=== PATIENT | male | born 1960 | race Caucasian/White ===

== ENCOUNTER 2020-09-05 10:04 | Outpatient (REF) | payer OTHER, SELFPAY | END 2020-09-05 10:05 | disposition home or self-care (01) | LOC: HO.LAB 10:04 | PROVIDERS: Visit Provider Internal Medicine | DX: Z20.828 Contact with and (suspected) exposure to other viral communicable diseases (principal) | CPT/HCPCS: C9803; U0003 ==

== ENCOUNTER 2021-06-12 11:48 | Outpatient (REF) | payer OTHER, SELFPAY | END 2021-06-12 11:49 | disposition home or self-care (01) | LOC: HO.LAB 11:48 | PROVIDERS: Visit Provider Internal Medicine | DX: Z20.822 Contact with and (suspected) exposure to COVID-19 (principal) | CPT/HCPCS: C9803; U0003; U0005 ==

== ENCOUNTER 2022-01-17 12:37 | Outpatient (REF) | payer OTHER, SELFPAY ==
[2022-01-17 13:41] LABS: Erythrocyte Sedimentation Rate 2 MM/HR (0-15)
[2022-01-19 01:32] LABS: Lyme Abs Screen <0.90 index
== END 2022-01-17 12:38 | disposition home or self-care (01) ==
LOC: HO.LAB 12:37
PROVIDERS: PCP Internal Medicine; Visit Provider Psychiatry & Neurology Neurology
DX: M25.50 Pain in unspecified joint (principal)
CPT/HCPCS: 36415; 85652; 86617; 86618

== ENCOUNTER 2022-02-28 09:52 | Outpatient (REF) | payer OTHER, SELFPAY ==
[2022-02-28 10:09] LABS: MANUAL DIFF FLAG NO
[2022-02-28 10:33] LABS: Basophils Absolute Auto 0.1 X10*3/uL (0.0-0.2); Basophils Percent Auto 0.6 % (0-2); Eosinophils Absolute Auto 0.1 X10*3/uL (0.0-0.4); Eosinophils Percent Auto 1.1 % (0-4); Hematocrit 47.8 % (42.0-52.0); Imm Gran Abs Auto 0.01 X10*3/uL (0.00-0.03); Imm Gran Pct Auto 0.1 % (0.0-0.4); Lymphocytes Absolute Auto 1.9 X10*3/uL (1.2-4.9); Lymphocytes Percent Auto 24.4 % (20-40); Mean Corpuscular HGB Conc 33.5 g/dl (31.0-36.0); Mean Corpuscular Hemoglobin 29.6 pg (27.0-33.0); Mean Corpuscular Volume 88.5 fL (80.0-98.0); Mean Platelet Volume 13.2 fL (9.4-12.4); Monocytes Absolute Auto 0.6 X10*3/uL (0.1-1.2); Neutrophils Absolute Auto 5.2 x10*3/uL (2.0-8.3); Neutrophils Percent Auto 65.8 % (45-73); Platelet Count 158 X10*3/uL (160-400); Red Cell Distribution Width 14.2 % (11.0-16.0); White Blood Count 7.9 X10*3/uL (4.8-10.8)
[2022-02-28 10:52] LABS: Appearance Urine HAZY; Color Urine YELLOW; Glucose Urine UA NEG (NEG); Leukocyte Esterase Urine NEG (NEG); Nitrite Urine NEG (NEG); Specific Gravity - Urine >= 1.030 (1.005-1.025); Urine Blood NEG (NEG); Urine Ketones 5 MG/DL (NEG); Urine Protein NEG (NEG-TRACE)
[2022-02-28 10:53] LABS: Cholesterol 220 mg/dL; Glucose Random 87 mg/dL (60-115); HDL Cholesterol 85 mg/dL; LDL Cholesterol Calculated 126 mg/dl; Magnesium 1.8 mg/dL (1.6-2.6); Triglycerides 49 mg/dL
[2022-02-28 11:13] LABS: Prostate Specific Antigen 0.96 ng/mL (<0.05-4.0)
[2022-02-28 11:20] LABS: Vitamin B12 380 pg/mL (200-900)
[2022-03-02 03:46] LABS: LDL Cholesterol Direct 112 mg/dL (<100)
== END 2022-02-28 09:53 | disposition home or self-care (01) ==
LOC: HO.LAB 09:52
PROVIDERS: PCP Internal Medicine; Visit Provider Internal Medicine
DX: Z12.5 Encounter for screening for malignant neoplasm of prostate (principal); K21.9 Gastro-esophageal reflux disease without esophagitis; M54.50 Low back pain, unspecified
CPT/HCPCS: 36415; 80061; 81003; 82607; 82947; 83721; 83735; 84153; 85025

== ENCOUNTER 2022-09-10 15:54 | Outpatient (REF) | payer OTHER, SELFPAY ==
--- NOTE | ~2022-09-10 | XR_ITS ---
EXAMINATION: XR WRIST, RIGHT CLINICAL INFORMATION: M25.532 - Pain in left wrist COMPARISON: None TECHNIQUE: Right wrist is imaged in 4 views. FINDINGS: There is no acute fracture or dislocation or destructive process. There is mild dorsal bowing distal ulnar. The pronator quadratus fat pad appears normal. The ulnar styloid is ununited and corticated. There are 2 punctate corticated ossicles medial wrist and a corticated ossicle adjacent to palmar side radial styloid. There is mild widening between the lunate and scaphoid which may suggest degenerative change or tear of scapholunate ligament. There is no focal joint narrowing or erosive change or definite chondrocalcinosis. XR/XR wrist RT min 3V IMPRESSION: -Mild widening between lunate and scaphoid which may suggest degenerative change or tear of the scapholunate ligament. -Ununited corticated ulnar styloid. Smaller ossicles medial and lateral sides.
== END 2022-09-10 15:55 | disposition home or self-care (01) ==
LOC: HO.HOSX 15:54
PROVIDERS: Visit Provider Orthopaedic Surgery
DX: M25.531 Pain in right wrist (principal)
CPT/HCPCS: 73110

== ENCOUNTER 2022-09-25 08:18 | Day surgery (SDC) | payer OTHER, SELFPAY ==
--- NOTE | 2022-09-24 10:11 | HO.ANESPROP2 ---
Documented by User: Kaitlin Collier NP 09/24/22 10:11 HPI - Anesthesia Eval Consult details Narrative: 62yo M for Upper Endoscopy and Colonoscopy [facility] Active Problems Active Problems: All Active Problems (Updated 09/11/22 @ 11:10 by Phu Cristobal) Carpal tunnel syndrome of right wrist (Acute) Scapholunate advanced collapse of right wrist (Acute) Past Medical History Medical History (Updated 09/11/22 @ 11:10 by Phu Cristobal) Acid reflux Hx of nephrolithotomy with removal of calculi Parkinson disease Surgical History Surgical History (Updated 09/24/22 @ 07:48 by Sadie Cisneros RN) H/O lithotripsy Social History Social History (Updated 09/11/22 @ 10:23 by ALBERTO Michael) Patient Tobacco Use Status: Never used Tobacco Second Hand Smoke Exposure: No Use of substances other than those prescribed or required for medical reasons: No Are you DNR?: No Advance Directives: No Advance Directives Information Provided: Yes Advance Directives on File: No Current occupational status: retired Current occupation: left hand Meds Allergies Allergy/AdvReac Type Severity Reaction Status Date / Time No Known Allergies Allergy Unverified 09/11/22 10:20 Home Medications Medication Instructions Recorded Confirmed Last Taken Type carbidopa 25 mg-levodopa 100 mg 2 tab PO QID 09/11/22 09/25/22 09/25/22 History tablet clonazepam 0.5 mg tablet 0.25 mg PO BEDTIME 09/11/22 09/25/22 Unknown History omeprazole 20 mg capsule,delayed 20 mg PO DAILY 09/11/22 09/25/22 Unknown History release pramipexole 1.5 mg tablet,extended 3 mg PO BID 09/11/22 09/25/22 09/25/22 History release 24 hr sildenafil 100 mg tablet 100 mg PO DAILY 09/11/22 09/25/22 Unknown History Exam Exam Date and Time: September 24, 2022 1011 Assessment and Plan Assessment Anesthesia Assessment: Chart Reviewed Documented by User: Ptio Aguilar MD 09/25/22 17:14 [facility] Past Medical History Medical History (Updated 09/11/22 @ 11:10 by Phu Cristboal) Acid reflux Hx of nephrolithotomy with removal of calculi Parkinson disease Functional capacity: independent ambulation Family History Family history of problems with anesthesia: No Surgical History Surgical History (Updated 09/24/22 @ 07:48 by Sadie Cisneros RN) H/O lithotripsy History of Problems with Anesthesia: No Social History Social History (Updated 09/11/22 @ 10:23 by ALBERTO Michael) Patient Tobacco Use Status: Never used Tobacco Second Hand Smoke Exposure: No Use of substances other than those prescribed or required for medical reasons: No Are you DNR?: No Advance Directives: No Advance Directives Information Provided: Yes Advance Directives on File: No Current occupational status: retired Current occupation: left hand Meds Allergies Allergy/AdvReac Type Severity Reaction Status Date / Time No Known Allergies Allergy Unverified 09/11/22 10:20 Home Medications Medication Instructions Recorded Confirmed Last Taken Type carbidopa 25 mg-levodopa 100 mg 2 tab PO QID 09/11/22 09/25/22 09/25/22 History tablet clonazepam 0.5 mg tablet 0.25 mg PO BEDTIME 09/11/22 09/25/22 Unknown History omeprazole 20 mg capsule,delayed 20 mg PO DAILY 09/11/22 09/25/22 Unknown History release pramipexole 1.5 mg tablet,extended 3 mg PO BID 09/11/22 09/25/22 09/25/22 History release 24 hr sildenafil 100 mg tablet 100 mg PO DAILY 09/11/22 09/25/22 Unknown History Exam Airway Mallampati Class: III TM Dist: >3cm Neck ROM: Full Loose/Missing/Broken Teeth: Yes (Chipped teeth multiple ) Heart: S1,S2 Lungs: b/l breath sounds Assessment and Plan Assessment Anesthesia Assessment: Anesthesia Plan Discussed Final Anesthetic Review Family History of Problems with Anesthesia: No History of Problems with Anesthesia: No NPO: Yes ASA Class: III Final Preanesthetic Review: Meds/Allgs Chart Reviewed, Consent Obtained/Reviewed and Anes Risks/Benef Reviewed Patient Risk: Intermediate Procedure Risk: Intermediate Anesthetic Plan Anesthetic Plan: MAC: Disposition: Standard PACU
[2022-09-25 08:25] VITALS: BMI 25.0
[2022-09-25 08:38] VITALS: BP 131/84; PULSE 88; RESP 16; TEMP 36.4; O2SAT 97
[2022-09-25] MEDS: Lactated Ringers 1,000 ML 100 ML IVCONT (08:43)
--- NOTE | 2022-09-25 09:22 | MHC.SHP ---
Pre-Procedural Eval Section A Date of Service: 09/25/22 Section B Chief Complaint: reflux disease,screening Details of Present Illness: see H*P no changes Relevant Family History (Specify if Yes): No Relevant Social History: None Present Medications: see Short Stay Collaborative assessment Medical History: No relevant PMH History of Previous Operations: No relevant previous surgery Allergies: Allergies Allergy/AdvReac Type Severity Reaction Status Date / Time No Known Allergies Allergy Unverified 09/11/22 10:20 Review of Systems Sugical H&P ROS: Negative: Constitution, Cardiovascular, Respiratory, Neurological, Psychiatric, Hem-Onc, Allergic/Immunologic, Gastrointestinal, Genitourinary, Musculoskeletal, Integumentary, Endocrine and Eyes/Ears/Nose/Throat Exam Surgical H&P Exam: Normal: HEENT, Normal: Heart, Normal: Lungs, Normal: Extremities, Normal: Abdomen, Normal: Skin and Normal: Neurological Plan Diagnosis/Plan: Unchanged I have reviewed the history and physical and performed a pertinent physical examination on my patient. No changes have occurred unless specified.
[2022-09-25 10:12] VITALS: BP 112/77; PULSE 67; RESP 16; TEMP 36.4; O2SAT 96
--- NOTE | 2022-09-25 10:12 | P.BOP_ITS ---
Brief Operative Note Date of Service: 09/25/22 Pre-op diagnosis: gerd screening Post-op diagnosis: same Procedure: egd Surgeon: Tommy Tony Anesthesia: MAC Was an Business And Financial Counsel used for this Procedure?: No Estimated blood loss (mL): 2 Pathology: other Condition: stable Disposition: PACU
[2022-09-25 10:27] VITALS: BP 118/78; PULSE 63; RESP 16; TEMP 36.2; O2SAT 95
--- NOTE | 2022-09-25 21:18 | OP_ITS ---
SURGEON: Tommy Tony MD INDICATIONS: 1. Gastroesophageal reflux disease. 2. Colon cancer screening. PREOPERATIVE DIAGNOSIS: POSTOPERATIVE DIAGNOSIS: PROCEDURE PERFORMED: Upper endoscopy with biopsy and snare polypectomy. Colonoscopy to the terminal ileum. ESTIMATED BLOOD LOSS: COMPLICATIONS: ANESTHESIA: Monitored anesthesia care. ASSISTANTS: SPECIMENS: DESCRIPTION OF PROCEDURE: The procedure was performed on 09/25/2022. A history and physical performed. The risks and benefits of the procedure were explained to the patient. Informed consent was obtained. The patient was placed in the left lateral decubitus position. The Olympus video gastroscope was introduced into the esophagus, stomach, and duodenum. Examination was performed. The scope was removed. He was repositioned for colonoscopy. A digital rectal exam was performed and was found to be normal. The Olympus pediatric video colonoscope was introduced into the rectum and advanced to the cecum without difficulty. The cecum was identified by transillumination, palpation, and identification of ileocecal valve. Examination was performed and the scope was removed. He tolerated both procedures well and was taken to recovery room in stable condition. FINDINGS: Upper endoscopy: Esophagus: The esophagus showed mild distal esophagitis with some linear erosions extending approximately 1-2 cm above the EG junction. This was biopsied. Stomach: Just below the EG junction, there was a 6 mm polyp, which was biopsied and removed with a snare. There were 2 polyps in the antrum that were sessile, measuring less than 10 mm. These were biopsied. Antral biopsies were also obtained. There was no gastritis. Duodenum: The bulb and second portion were normal. Colonoscopy: The terminal ileum was normal. The visualized colonic mucosa was normal. The quality of the prep was good. No polyps were identified. Retroflexed examination showed small internal hemorrhoids. IMPRESSION: 1. Gastric polyps. 2. Gastroesophageal reflux disease with esophagitis. 3. Normal colonoscopy. RECOMMENDATION: 1. Follow up with biopsy results. 2. Repeat colonoscopy is recommended in 10 years for average risk individuals. MD EMIR Collado/JOSÉ MIGUEL / [id number]
== END 2022-09-25 11:12 | disposition home or self-care (01) ==
PROVIDERS: PCP Internal Medicine; Visit Provider Internal Medicine Gastroenterology
PROC: (CPT 43251; principal; 2022-09-25 08:50)
DX: Z12.11 Encounter for screening for malignant neoplasm of colon (principal); K21.00 Gastro-esophageal reflux disease with esophagitis, without bleeding; K31.7 Polyp of stomach and duodenum; G20 Parkinson's disease; Z79.899 Other long term (current) drug therapy
CPT/HCPCS: 43251; 43239; 45378; 88305; 88313; 88341; 88342

== ENCOUNTER 2022-10-15 10:17 | Day surgery (SDC) | payer OTHER, SELFPAY ==
[2022-10-15 10:22] VITALS: BMI 25.0
--- NOTE | 2022-10-15 11:31 | MHC.SHP ---
Pre-Procedural Eval Section A Date of Service: 10/15/22 The patient is an INPATIENT: No Changes since office visit: No Cold of Flu in the past 2 weeks, No New Medical Problems, No Changes in Medication and No Patient answered all questions The History & Physical has been completed within 30 days and I have reviewed it.: Yes Section B Chief Complaint: Carpal tunnel syndrome, right upper limb Allergies: Allergies Allergy/AdvReac Type Severity Reaction Status Date / Time No Known Allergies Allergy Verified 10/15/22 10:23 Plan I have reviewed the history and physical and performed a pertinent physical examination on my patient. No changes have occurred unless specified. Time Spent With Patient Time: Total time managing care of this patient today ____ minutes.
--- NOTE | 2022-10-15 11:31 | W.PM.OPN ---
Operative Note Operative Note Date of Service: 10/15/22 Narrative: Preop diagnosis: 1. Right Carpal tunnel syndrome Postop diagnosis: same Procedure: 1. Right Carpal tunnel release Surgeon: Smitha Abad MD Anesthesia: local block using 1% lidocaine with epinephrine Findings: Thickened transverse carpal ligament. EBL: Less than 5 mL Specimens: None Complications: None Disposition: Brought to recovery room in stable condition Plan: Follow-up for 10-14 days for wound check and suture removal Indications: The patient is 62 years old, with right carpal tunnel syndrome that has been unresponsive to nonoperative management. The risks and benefits of operative treatment including but not limited to risk of damage to blood vessels, nerves, tendons, infection, persistent pain, persistent symptoms, or possible need for additional surgery were discussed with the patient and the patient wishes to proceed with surgery. Procedure: Once consent was obtained a local block was performed using a combination of 1% lidocaine with epinephrine. The patient was then brought back to the operating suite and placed on the operative table in supine position. A tourniquet was applied to the proximal aspect of the right upper extremity and the limb was prepped and draped in a standard surgical fashion. Once assured that we had a good block, a 2.0 cm longitudinal incision was made centered over the carpal tunnel. The incision was made through the skin to the subcutaneous tissues using a #15 blade. Dissection was made down to the level of the transverse carpal ligament with care being taken to protect the palmar cutaneous nerve. Once the transverse carpal ligament was clearly visualized, a longitudinal incision was made in the transverse carpal ligament 1st using a #15 blade, then using tenotomy scissors under direct visualization. Care was taken to look for and protect the motor branch of the median nerve when seen in this area. Once satisfied with our carpal tunnel release the wound was copiously irrigated with normal saline and hemostasis was obtained with a brief period of local pressure. The skin edges were reapproximated with some 5.0 nylon suture material and a sterile dressing was applied. The patient appears to have tolerated the procedure well and with no complications. All digits were well vascularized at the conclusion of the case.
[2022-10-15 12:32] VITALS: BP 120/84; PULSE 74; RESP 16; O2SAT 94
== END 2022-10-15 12:43 | disposition home or self-care (01) ==
PROVIDERS: PCP Internal Medicine; Visit Provider Orthopaedic Surgery
PROC: (CPT 64721; principal; 2022-10-15 12:10)
DX: G56.01 Carpal tunnel syndrome, right upper limb (principal); R20.0 Anesthesia of skin; R20.2 Paresthesia of skin; M19.131 Post-traumatic osteoarthritis, right wrist; G20 Parkinson's disease; K21.9 Gastro-esophageal reflux disease without esophagitis; Z79.899 Other long term (current) drug therapy
CPT/HCPCS: 64721; J0171

== ENCOUNTER → 2022-10-25 09:48 | Outpatient (BNVA) | payer OTHER, SELFPAY | PROVIDERS: PCP Internal Medicine; Visit Provider Physician Assistant | DX: G56.01 Carpal tunnel syndrome, right upper limb (principal) ==

== ENCOUNTER 2023-06-11 09:37 | Outpatient (REF) | payer OTHER, SELFPAY | END 2023-06-11 09:38 | disposition home or self-care (01) | LOC: HO.LAB 09:37 | PROVIDERS: PCP Internal Medicine; Visit Provider Internal Medicine | DX: Z13.89 Encounter for screening for other disorder (principal) ==

== ENCOUNTER 2023-06-14 09:30 | Outpatient (REF) | payer OTHER, SELFPAY ==
[2023-06-14 10:39] LABS: Cholesterol 188 mg/dL; HDL Cholesterol 81 mg/dL; LDL Cholesterol Calculated 97 mg/dl; Triglycerides 53 mg/dL
[2023-06-14 10:54] LABS: Prostate Specific Antigen 0.93 ng/mL (<0.05-4.0)
[2023-06-15 12:19] LABS: LDL Cholesterol Direct 91 mg/dL (<100)
[2023-06-19 14:09] LABS: Methylmalonic Acid 171 nmol/L (87-318)
== END 2023-06-14 09:31 | disposition home or self-care (01) ==
LOC: HO.LAB 09:30
PROVIDERS: PCP Internal Medicine; Visit Provider Internal Medicine
DX: G20 Parkinson's disease (principal); K21.9 Gastro-esophageal reflux disease without esophagitis; Z12.5 Encounter for screening for malignant neoplasm of prostate; Z83.438 Family history of other disorder of lipoprotein metabolism and other lipidemia
CPT/HCPCS: 36415; 80061; 83721; 83921; 84153

== ENCOUNTER 2023-06-25 09:17 | Outpatient (REF) | payer OTHER, SELFPAY ==
--- NOTE | ~2023-06-25 | FL_ITS ---
EXAMINATION: XR FLUOROSCOPY WITH IMAGES CLINICAL INFORMATION: Posttraumatic osteoarthritis, right wrist. COMPARISON: Previous x-ray August 2022. TECHNIQUE: Fluoroscopy Supervised By: Dr. Smitha Abad. Fluoroscopy Time: 15.9 seconds. Cumulative Dose: mGy. DAP: 7057.6 Gycm2. Images: 1. FINDINGS: Image demonstrates needle placement over the scapholunate joint which appears slightly widened. Accessory ossification center versus ununited old styloid fracture. FL/FL guided needle placement IMPRESSION: Fluoroscopy guidance for right wrist procedure
== END 2023-06-25 09:18 | disposition home or self-care (01) ==
LOC: HO.HOSX 09:17
PROVIDERS: PCP Internal Medicine; Visit Provider Orthopaedic Surgery
DX: M19.131 Post-traumatic osteoarthritis, right wrist (principal); G56.01 Carpal tunnel syndrome, right upper limb
CPT/HCPCS: 20605; 77002; 77012; J1020

== ENCOUNTER 2023-06-25 09:17 | Outpatient (AMB) | payer OTHER, SELFPAY ==
[2023-06-25 09:21] VITALS: BMI 25.1
--- NOTE | 2023-06-25 09:21 | MHC.OFFVIS ---
Intake Vital Signs 06/25/23 09:21 Height 5 ft 7 in Weight 160 lb BMI 25.1 Intake Visit Reasons: OV- RT Wrist pain Intake Note: Lei 62 year old left hand dominant male who presents today for his S/P right CTR, 10/15/[address] Abad. States he is here to discuss a loose foreign body in his wrist. Allergies No Known Allergies Allergy (Verified 06/25/23 09:29) HPI OV- RT Wrist pain HPI Details Lei is a 63 year old right hand dominant man who presents for a follow up of his right SLAC wrist. He has a hx of right carpal tunnel release, DOS: 10/15/22. He complains of increased pain in his wrist, worst with pushing off activities, but he has pain with general use of his wrist. He says activities such as Golfing or fishing are painful for him. Again this is most likely from a broken wrist at age 17. In regards to his carpal tunnel, he says his numbness has improved and he is happy with the results of his surgery. He follows with Dr. William for Parkinson's disease. He is retired but tries to remain active. [facility] Medical History (Updated 09/11/22 @ 11:10 by Phu Cristobal) Acid reflux Hx of nephrolithotomy with removal of calculi Parkinson disease Surgical History (Updated 09/24/22 @ 07:48 by Sadie Cisneros RN) H/O lithotripsy Social History Patient Tobacco Use Status: Never used Tobacco Second Hand Smoke Exposure: No Current occupational status: retired Current occupation: left hand Review of Systems Const All systems reviewed & are unremarkable except as noted in HPI and below Physical Exam Vital Signs: BMI result Body Mass Index 25.1 Const General: no acute distress and alert Orientation/consciousness: patient oriented x3 Neuro General: patient oriented x3 Extrem Other: Evaluation of Right Upper Extremity: The patient is alert, oriented, and in no acute distress Neuro: Median, Ulnar, Radial nerves motor and sensory intact and sensation is normal to the tips of all digits Vascular: Cap refill brisk ROM: He can make a fist and extend all his digits Focal area of swelling over dorsal radial aspect of the wrist Ulnar styloid non union is completely non-tender and asymptomatic Radiographs: 3 views of the right wrist from 09/11/22 were reviewed by me today in clinic. They show a widening of scapholunate interval with loss of the mid-carpal space between the lunate and capitate. he also has some narrowing of the radioscaphoid joint with good preservation of the radial lunate joint. he has an ossicle, possibly representing an old radial styloid fracture, at the tip of the radial styloid. 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 Psych Appearance: grossly normal Affect: normal affect Attitude: cooperative Office Procedures Fracture Care Details: No fracture. Injection , and [id number] for FluoroScan with needle guidance Fracture Billing Code: Fracture Billing Code Assessment & Plan Assessment & Plan (1) Carpal tunnel syndrome of right wrist: Code(s): G56.01 - Carpal tunnel syndrome, right upper limb (2) Scapholunate advanced collapse of right wrist: Code(s): M19.131 - Post-traumatic osteoarthritis, right wrist Plan Assessment & Plan: 1. Right scapholunate advanced collapse wrist (SLAC) deformity From an old injury at age 17 I educated him about this condition I discussed operative and non-operative treatment options The patient would like to proceed with an injection today I discussed activity modification, he is to limit or avoid any heavy or repetitive activities which worsen his pain He should continue to wear his wrist brace with daily activities, and remove it at rest. We fitted him with a new right Velcro wrist splint to wear with heavy activities or when symptomatic. Injection #1 : The risks and benefits of a steroid injection including but not limited to risk of damage to blood vessels, nerve, tendon, infection, skin bleaching, persistent or worsening pain, and failure to improve symptoms were discussed with the patient and they wish to proceed with the steroid injection. Once consent was obtained the skin over the dorsal aspect of the right wrist was sterilely prepped. The radiocarpal joint at the scapholunate interval was then injected with a combination of 1 mL of (40 mg/ml} Depo-Medrol and 3% plain Lidocaine using the mini c-arm for needle guidance. The patient appears to have tolerated the procedure well and with no complications. Lei had good early relief before leaving clinic today. He knows that they may not have another steroid injection into this joint for least 4 months. Follow up prn 2. Right Carpal tunnel syndrome, S/P release DOS: 10/15/22 Pre-operative symptoms intermittent, but daily, worse at night Now with normal sensation He is happy with the results of his surgery Scribed for Smitha Abad MD by Phu Cristobal, medical records clerk, on 06/25/23 at 9:40 AM, EST. Orders: Orders FL guided needle placement Today M19.131 - Post-traumatic osteoarthritis, right wrist Coding Level of Care Code Est Pt Level 3 (40372) Diagnoses Carpal tunnel syndrome of right wrist G56.01 Scapholunate advanced collapse of right wrist M19.131 CPT Codes Fracture Care - Fracture Billing Code: Fracture Billing Code ([id number])
== END 2023-06-25 10:13 | disposition home or self-care (01) ==
PROVIDERS: PCP Internal Medicine; Visit Provider Orthopaedic Surgery
DX: G56.01 Carpal tunnel syndrome, right upper limb (principal); M19.131 Post-traumatic osteoarthritis, right wrist
CPT/HCPCS: 20605; 99214

== ENCOUNTER → 2023-06-25 09:55 | Outpatient (BNV) | payer OTHER, SELFPAY | PROVIDERS: PCP Internal Medicine; Visit Provider Radiology Diagnostic Radiology | DX: M19.131 Post-traumatic osteoarthritis, right wrist (principal) | CPT/HCPCS: 20605; 77002 ==

== ENCOUNTER 2023-07-31 09:50 | Emergency (ER) | payer OTHER, SELFPAY ==
--- NOTE | ~2023-07-31 | XR_ITS ---
EXAMINATION: XR CHEST CLINICAL INFORMATION: Chest pain COMPARISON: None available. TECHNIQUE: Frontal view of the chest was obtained. FINDINGS: There is a faint patchy infiltrate in the right mid to upper lung as well as the lung bases. I would recommend follow-up PA and lateral. Heart and pulmonary vessels. No congestive change. XR/XR chest 1V IMPRESSION: Query mild bilateral infiltrates which follow-up PA lateral is advised.
--- NOTE | ~2023-07-31 | XR_ITS ---
EXAMINATION: XR CHEST CLINICAL INFORMATION: Difficulty breathing COMPARISON: Earlier 07/31/2023 exam. TECHNIQUE: 2 views of the chest were obtained. FINDINGS: Better inspiratory effort noted. Lungs are clear. No pleural effusions. Heart and pulmonary vessels are normal. XR/XR chest 2V IMPRESSION: No active disease.
--- NOTE | 2023-07-31 10:00 | ECG_ITS ---
Test Reason : CP Blood Pressure : / mmHG Vent. Rate : 075 BPM Atrial Rate : 075 BPM P-R Int : 158 ms QRS Dur : 078 ms QT Int : 384 ms P-R-T Axes : 035 004 -04 degrees QTc Int : 428 ms Normal sinus rhythm Inferior infarct , age undetermined Abnormal ECG No previous ECGs available Referred By: Willian Craig Electronically Signed By:EMELI HAMPTON
--- NOTE | 2023-07-31 10:01 | ED_ITS ---
HPI - Chest Pain General Chief Complaint: Arrhythmia/Palpitations Stated Complaint: sent by Dr Teran Seen by Provider: 07/31/23 09:53 Source: patient Mode of arrival: ambulatory Limitations: no limitations History of Present Illness HPI narrative: This is 63 years old male with history of Parkinson disease, history of lower back pain, presented to emergency department complaining of chest pain since Saturday. He describes the chest pain as ?skipped beats? lasting few seconds. No exertional symptoms no diaphoresis complaint: chest pain Onset (ago): day(s) (3) Timing of current episode: episodic Onset: during rest Pain location: left chest Pain radiation: none Severity: mild Quality: other (Skip beats) Relieving factors: nothing Exacerbating factors: nothing Risk Factors Coronary artery disease risk factors: none Related Data Home Medications Medication Instructions Recorded Confirmed carbidopa 25 mg-levodopa 100 mg 2 tab PO QID 09/11/22 10/15/22 tablet clonazepam 0.5 mg tablet 0.25 mg PO BEDTIME 09/11/22 10/15/22 omeprazole 20 mg capsule,delayed 20 mg PO DAILY 09/11/22 10/15/22 release pramipexole 1.5 mg tablet,extended 3 mg PO BID 09/11/22 10/15/22 release 24 hr sildenafil 100 mg tablet 100 mg PO DAILY 09/11/22 10/15/22 Previous Rx's Medication Instructions Recorded hydrocodone 5 mg-acetaminophen 325 1 tab PO Q4-6H PRN pain #5 tabs 10/15/22 mg tablet cyclobenzaprine 10 mg tablet 10 mg PO Q8H prn back pain #15 tabs 07/31/23 lidocaine 5 % topical patch 1 patch topical DAILY #15 ea 07/31/23 Allergies Allergy/AdvReac Type Severity Reaction Status Date / Time No Known Allergies Allergy Verified 06/25/23 09:29 Review of Systems 2 Constitutional: Constitutional: Reports no additional constitutional complaints ENT: Reports system reviewed and no additional complaints, except as documented Cardiovascular: Cardiovascular: Reports as per HPI Respiratory: Respiratory: Reports no additional respiratory complaints Musculoskeletal: Musculoskeletal: Reports no additional musculoskeletal complaints PMFSH Past Medical History Medical History Hx of nephrolithotomy with removal of calculi Acid reflux Parkinson disease Surgical History H/O lithotripsy Social History Social History Patient Tobacco Use Status: Never used Tobacco Second Hand Smoke Exposure: No Advance Directives: No Current occupational status: retired Current occupation: left hand Physical Exam 2 Vital Signs: Vital Signs: Last Vital Signs Temp 98.1 F 07/31/23 10:04 Pulse 78 07/31/23 10:04 Resp 20 07/31/23 10:04 BP 114/77 07/31/23 10:04 Pulse Ox 94 07/31/23 10:04 O2 Del Method Room Air 07/31/23 10:04 BMI result Body Mass Index 25.7 Const: General: cooperative, comfortable, no acute distress, well developed and alert Nutritional Appearance: well nourished O rientation/consciousness: patient oriented x3 Limitations: no limitations HEENT: Head: Yes normal to inspection General nose exam: Normal external nose present Throat: Yes posterior oropharynx normal Neck: Neck: Yes normal visual inspection Chest: Chest palpation & inspection: normal inspection of the chest Cardio: Palpation: normal PMI Rate: regular rate Rhythm: regular rhythm GI: Inspection: Yes normal to inspection Palpation (GI): Soft to palpation, not firm, nontender and no guarding Skin: General skin exam: no rashes or lesions noted, elasticity normal and turgor normal Lesions: no lesions Neuro: General: patient oriented x3 Extrem: General: Yes normal to inspection, Yes full ROM and Yes capillary refill normal Course Reevaluation(s) Reevaluation #1: Patient through P flat chest x-ray PA lateral normal I think at this point the patient can be safely discharged home a follow-up with the primary care physician. He did ask me for prescription for Flexeril and lido for his back pain Time: 13:38 Medications Administered Discontinued Medications Generic Name Dose Route Start Last Admin Trade Name Freq PRN Reason Stop Dose Admin Sodium Chloride 1,000 mls @ 999 mls/hr 07/31/23 10:00 07/31/23 11:24 Ns IVCONT 07/31/23 11:00 Infused .Q1H1M SHERMAN Infusion Medical Decision Making Medical Decision Making MDM Narrative: Patient presented with the chief complaint chest pain will obtain electrocardiogram high sensitive troponin and reassess Differential Diagnosis Differential Diagnoses: The differential diagnosis associated with the presentation includes Noncardiac chest pain/acute coronary syndrome/pneumothorax Admission/Observation Consideration of admission/observation: Escalation of care including admission/observation considered Lab Data MDM Lab Attestation statement: I reviewed the patient's lab results. 07/31/23 10:12 07/31/23 10:12 Labs: Lab Results 07/31/23 07/31/23 Range/Units 10:12 11:51 WBC 7.2 (4.8-10.8) X10*3/uL RBC 5.42 (4.60-5.80) X10*6/uL Hgb 16.2 (14.0-18.0) g/dl Hct 48.0 (42.0-52.0) % MCV 88.6 (80.0-98.0) fL MCH 29.9 (27.0-33.0) pg MCHC 33.8 (31.0-36.0) g/dl RDW 14.1 (11.0-16.0) % Plt Count 171 (160-400) X10*3/uL MPV 12.5 H (9.4-12.4) fL Immature Gran % (Auto) 0.1 (0.0-0.4) % Neut % (Auto) 67.6 (45-73) % Lymph % (Auto) 23.4 (20-40) % Hettinger % (Auto) 6.4 (2-11) % Eos % (Auto) 1.9 (0-4) % Baso % (Auto) 0.6 (0-2) % Lymph # (Auto) 1.7 (1.2-4.9) X10*3/uL Hettinger # (Auto) 0.5 (0.1-1.2) X10*3/uL Eos # (Auto) 0.1 (0.0-0.4) X10*3/uL Baso # (Auto) 0.0 (0.0-0.2) X10*3/uL Abs Immat Gran (auto) 0.01 (0.00-0.03) X10*3/uL Absolute Neuts (auto) 4.9 (2.0-8.3) x10*3/uL Absolute Nucleated RBC 0.000 (0.0-0.012) X10*3/uL Nucleated RBC % (auto) 0.0 (0.0-0.2) /100WBC Sodium 137 (135-145) mmol/L Potassium 4.1 (3.3-5.1) mmol/L Chloride 102 (96-108) mmol/L Carbon Dioxide 26 (22-29) mmol/L Anion Gap 13 (12-20) BUN 17 H (9-16) mg/dL Creatinine 0.93 (0.5-1.4) mg/dL Estim Creat Clear Calc 76.0 Estimated GFR > 60 Random Glucose 117 H (60-115) mg/dL Calcium 9.7 (8.4-10.2) mg/dL Total Bilirubin 0.5 (0.0-1.0) mg/dL AST 22 (5-37) U/L ALT < 5 (0-40) U/L Alkaline Phosphatase 79 (39-117) U/L Troponin I High Sens < 2.7 < 2.7 (<3.5-35.0) ng/L Total Protein 7.0 (6.5-8.0) g/dL Albumin 4.0 (3.5-5.0) g/dL Independent Interpretation I performed an independent interpretation of an: EKG and Plain X-Ray Interpretation: A normal sinus rhythm rate [address]-T changes, I personally reviewed the chest x-ray no acute disease no pneumothorax Radiology Impression Discussion of test interpretation with radiology: I have reviewed the radiologist's reading. Radiologist Impression: EXAMINATION: XR CHEST CLINICAL INFORMATION: Difficulty breathing COMPARISON: Earlier 07/31/2023 exam. TECHNIQUE: 2 views of the chest were obtained. FINDINGS: Better inspiratory effort noted. Lungs are clear. No pleural effusions. Heart and pulmonary vessels are normal. XR/XR chest 2V IMPRESSION: No active disease. Dictated By: Edu Edouard MD Independent Historian Clinical information obtained from an independent historian. History obtained from or confirmed by: Spouse Chronic Conditions Parkinson Discharge Plan Discharge Clinical Impression: Chest pain Patient Disposition: Home, Self-Care Instructions: Chest Pain (DC) Additional Instructions: follow up with Primary care doctor return if worse Prescriptions: New cyclobenzaprine 10 mg tablet 10 mg PO Q8H Qty: 15 0RF lidocaine 5 % adhesive patch,medicated 1 patch topical DAILY Qty: 15 0RF Rx Instructions: leave on most painful area for up to 12 hrs No Action hydrocodone-acetaminophen 5-325 mg tablet 1 tab PO Q4-6H PRN (Reason: pain) Qty: 5 0RF Rx Instructions: Partial Fill upon patient request. pramipexole 1.5 mg tablet extended release 24 hr 3 mg PO BID carbidopa-levodopa 25-100 mg tablet 2 tab PO QID omeprazole 20 mg capsule,delayed release(DR/EC) 20 mg PO DAILY sildenafil 100 mg tablet 100 mg PO DAILY clonazepam 0.5 mg tablet 0.25 mg PO BEDTIME Rx Instructions: administer 30 minutes before bedtime Referrals: Yong Cunningham MD [Primary Care Provider] - 2 days
[2023-07-31 10:04] VITALS: BP 114/77; PULSE 78; RESP 20; TEMP 36.7; O2SAT 94; BMI 25.7
[2023-07-31] MEDS: 0.9 % Sodium Chloride 1,000 ML 999 ML IVCONT (10:13)
[2023-07-31 10:15] LABS: MANUAL DIFF FLAG NO
--- NOTE | 2023-07-31 10:20 | PC.NURSE ---
alert and oriented, respirations even and unlabored. IV established, labs drawn and sent. IV fluids infusing at this time, ekg obtained. call doty within reach
[2023-07-31 10:22] LABS: Basophils Percent Auto 0.6 % (0-2); Eosinophils Absolute Auto 0.1 X10*3/uL (0.0-0.4); Eosinophils Percent Auto 1.9 % (0-4); Hemoglobin 16.2 g/dl (14.0-18.0); Imm Gran Abs Auto 0.01 X10*3/uL (0.00-0.03); Imm Gran Pct Auto 0.1 % (0.0-0.4); Lymphocytes Absolute Auto 1.7 X10*3/uL (1.2-4.9); Lymphocytes Percent Auto 23.4 % (20-40); Mean Corpuscular HGB Conc 33.8 g/dl (31.0-36.0); Mean Corpuscular Hemoglobin 29.9 pg (27.0-33.0); Mean Corpuscular Volume 88.6 fL (80.0-98.0); Mean Platelet Volume 12.5 fL (9.4-12.4); Monocytes Absolute Auto 0.5 X10*3/uL (0.1-1.2); Monocytes Percent Auto 6.4 % (2-11); Neutrophils Absolute Auto 4.9 x10*3/uL (2.0-8.3); Neutrophils Percent Auto 67.6 % (45-73); Platelet Count 171 X10*3/uL (160-400); Red Blood Count 5.42 X10*6/uL (4.60-5.80); Red Cell Distribution Width 14.1 % (11.0-16.0); White Blood Count 7.2 X10*3/uL (4.8-10.8)
[2023-07-31 10:44] LABS: Alanine Aminotransferase < 5 U/L (0-40); Alkaline Phosphatase 79 U/L (39-117); Anion Gap 13 (12-20); Aspartate Amino Transferase 22 U/L (5-37); Bilirubin Total 0.5 mg/dL (0.0-1.0); Blood Urea Nitrogen 17 mg/dL (9-16); Calcium 9.7 mg/dL (8.4-10.2); Carbon Dioxide 26 mmol/L (22-29); Chloride 102 mmol/L (96-108); Estimated Glomerular Filt Rate > 60; Glucose Random 117 mg/dL (60-115); Potassium 4.1 mmol/L (3.3-5.1); Sodium 137 mmol/L (135-145)
[2023-07-31 10:48] LABS: Troponin-I High Sensitivity < 2.7 ng/L (<3.5-35.0)
[2023-07-31 12:19] LABS: Troponin-I High Sensitivity < 2.7 ng/L (<3.5-35.0)
== END 2023-07-31 14:11 | disposition home or self-care (01) ==
PROVIDERS: Emergency Provider Emergency Medicine; PCP Internal Medicine
DX: R07.89 Other chest pain (principal); I49.9 Cardiac arrhythmia, unspecified; R00.2 Palpitations; R06.02 Shortness of breath; Z79.899 Other long term (current) drug therapy
CPT/HCPCS: 36415; 71045; 71046; 80053; 84484; 85025; 93005; 96360; 99284; 99285

== ENCOUNTER 2023-08-08 09:23 | Outpatient (REF) | payer OTHER, SELFPAY ==
--- NOTE | ~2023-08-08 | XR_ITS ---
EXAMINATION: XR PRE-MRI SCREENING ORBITS CLINICAL INFORMATION: Evaluate for metal in eye. Patient safety screening prior to MRI. COMPARISON: None TECHNIQUE: Radiographs of orbits, 3 views FINDINGS: No evidence of metallic foreign bodies. Orbital rim/live have an intact appearance. Paranasal sinuses are well-developed and well-aerated with and without air-fluid levels. XR/XR pre mri screening IMPRESSION: Negative. No evidence of foreign body in either orbit.
== END 2023-08-08 09:24 | disposition home or self-care (01) ==
LOC: HO.XRAY 09:23
PROVIDERS: PCP Internal Medicine; Visit Provider Radiology Diagnostic Radiology
DX: Z13.89 Encounter for screening for other disorder (principal)

== ENCOUNTER 2023-08-10 08:48 | Outpatient (REF) | payer OTHER, SELFPAY ==
--- NOTE | ~2023-08-10 | MR_ITS ---
EXAMINATION: MR LUMBAR SPINE WITHOUT CONTRAST CLINICAL INFORMATION: Low back pain and left lower extremity radiculopathy. COMPARISON: MRI dated 01/16/2019. TECHNIQUE: Multiplanar, multisequence imaging was obtained. FINDINGS: VERTEBRAL BODIES AND PARASPINAL STRUCTURES: There is a mild rightward curvature of the lumbar spine. There has been significant worsening of multilevel disc space narrowing compared to the prior study with endplate Schmorl's nodes. There is new mild endplate edema visible at the L1-L2 and L4-L5 levels. Mixed chronic and garg-jr-tenxqnrc edematous endplate changes noted at the L5-S1 level lateralized more so to the right side, as on prior imaging. No compression fractures are seen. Posterior subluxations noted from the L1 through the L4 levels. The paraspinal soft tissues are unremarkable. There are mild degenerative changes of the sacroiliac joints bilaterally. CONUS MEDULLARIS AND CAUDA EQUINE: The distal cord, conus tip, and cauda equina nerve roots are normal. SPINAL LEVELS: L1-L2: Worsened severe loss of disc height with new edematous endplate changes lateralized more so to the right side. Mild posterior subluxation with anterior endplate spurring. Broad-based disc bulge present, contacting but not distorting the traversing L2 nerve roots. No central canal stenosis. Mild bilateral foraminal narrowing. L2-L3: Posterior subluxation and worsened severe loss of disc height with bulky anterior endplate spurring. Broad-based disc bulge noted with a left lateral recess disc extrusion, new compared to prior imaging with mass effect upon the left L3 nerve root. Mild facet arthropathy without central canal stenosis. Yefj-hm-vwoxtjbe foraminal narrowing, worse on the left side. L3-L4: Mild posterior subluxation and broad-based disc bulge with further loss of disc height. Bulging disc mildly impresses upon the traversing L4 nerve roots in the subarticular zones. No central canal stenosis. Osseous spurring and bulging disc result in sgqqpjbc-wb-ussxei foraminal encroachment, worse on the left side. L4-L5: Worsened loss of disc height and retrosubluxation now present. Central disc protrusion with mild caudal migration. Underlying broad-based disc bulge present with mild facet arthropathy. No central canal stenosis. Bulging disc mildly impresses upon the left L5 nerve root, as on the prior study. Mild bilateral foraminal narrowing. L5-S1: Mixed chronic and edematous endplate changes with severe disc space narrowing, worsened since the prior study. Broad-based posterior disc bulge present with osseous spurring. Hqbzohzd-yg-iynils right-sided facet arthropathy has worsened. No central canal stenosis. Severe left foraminal narrowing has worsened with new mass effect upon the exiting left L5 nerve root. Slightly worsened severe right foraminal encroachment from osseous spurring is stable with compression of the exiting right L5 nerve root. MR/MR lumbar spine wo con IMPRESSION: 1. Significant worsening of multilevel degenerative disc disease and facet arthropathy compared to prior imaging. New mild endplate edema at the L1-L2 and L4-L5 levels. 2. New left lateral recess disc extrusion at L2-L3 with mass effect upon the left L3 nerve root. 3. Bulging disc impresses upon the L4 nerve roots in the subarticular zones at the L3-L4 level with xmebmvdn-fi-qeubrd foraminal narrowing, more so on the left side. 4. Central disc protrusion with mild caudal migration at the L4-L5 level. Bulging disc mildly impresses upon the left L5 nerve root. 5. Worsened severe disc space narrowing with mixed chronic and edematous endplate changes at the L5-S1 level. Uejobjvy-zc-lnzvvu right-sided facet arthropathy. Worsened severe left foraminal narrowing with new mass effect upon the left L5 nerve root. Slightly worsened severe right foraminal encroachment with compression of the right L5 nerve root.
== END 2023-08-10 08:49 | disposition home or self-care (01) ==
LOC: HO.MRI 08:48
PROVIDERS: PCP Internal Medicine; Visit Provider Internal Medicine
DX: M54.16 Radiculopathy, lumbar region (principal)
CPT/HCPCS: 72148

== ENCOUNTER 2023-12-10 12:29 | Outpatient (REF) | payer OTHER, SELFPAY ==
--- NOTE | ~2023-12-10 | FL_ITS ---
EXAMINATION: XR FLUOROSCOPY WITH IMAGES CLINICAL INFORMATION: Posttraumatic osteoarthritis right wrist. COMPARISON: None available. TECHNIQUE: Fluoroscopy Supervised By: Dr. Abad. Fluoroscopy Time: 12.5 sec. Cumulative Dose: Not documented. DAP: 5775.6 Gycm2. Images: 1. FINDINGS: Intraoperative fluoroscopy and spot films were performed during an MSK procedure. Please correlate with Dr. Abad' report for complete details. FL/FL guided needle placement IMPRESSION: Intraoperative fluoroscopy and spot films were obtained. Please see Dr. Abad' report for complete details.
== END 2023-12-10 12:30 | disposition home or self-care (01) ==
LOC: HO.HOSX 12:29
PROVIDERS: PCP Internal Medicine; Visit Provider Orthopaedic Surgery
DX: M19.131 Post-traumatic osteoarthritis, right wrist (principal); G56.01 Carpal tunnel syndrome, right upper limb
CPT/HCPCS: 20605; 77002; J1020

== ENCOUNTER 2023-12-10 12:29 | Outpatient (AMB) | payer OTHER, SELFPAY ==
[2023-12-10 12:46] VITALS: BMI 25.7
--- NOTE | 2023-12-10 12:46 | A.OFFVIS_ITS ---
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 States onjection lasted about 3-4 months and would like to repeat injection today. Allergies No Known Allergies Allergy (Verified 12/10/23 12:50) HPI OV-Right wrist injection-last injection 06/25/23 HPI Details Lei is a 63 year old right hand dominant man who presents for a follow up of his right SLAC wrist. He received a wrist injection on 06/25/23, which he says lasted for ~3-4 months before his pain returned. He complains of increased pain in his wrist, worse with gripping, twisting, or pushing off activities, but he has pain with general use of his wrist. He says opening jars are particularly difficult for him, along with other heavy activities. He says he feels like his wrist is broken at times. He would like a repeat injection today. He follows with Dr. iWlliam for Parkinson's disease. He is retired but tries to remain active. [facility], [facility] Medical History Hx of nephrolithotomy with removal of calculi Acid reflux Parkinson disease Surgical History H/O lithotripsy Social History Patient Tobacco Use Status: Never used Tobacco Second Hand Smoke Exposure: No Current occupational status: retired Current occupation: left hand Physical Exam Vital Signs: BMI result Body Mass Index 25.7 Const General: no acute distress and alert Orientation/consciousness: patient oriented x3 Neuro General: patient oriented x3 Extrem Other: Evaluation of Right Upper Extremity: The patient is alert, oriented, and in no acute distress Neuro: Median, Ulnar, Radial nerves motor and sensory intact and sensation is normal to the tips of all digits Vascular: Cap refill brisk ROM: He can make a fist and extend all his digits Good wrist flexion & extension without pain Focal area of swelling over the radiocarpal joint Tenderness over the radiocarpal joint Psych Appearance: grossly normal Affect: normal affect Attitude: cooperative Office Procedures Fracture Care Details: No fracture, injection , and using the FluoroScan for needle guidance Fracture Billing Code: Fracture Billing Code Assessment & Plan Assessment & Plan (1) Carpal tunnel syndrome of right wrist: Code(s): G56.01 - Carpal tunnel syndrome, right upper limb (2) Scapholunate advanced collapse of right wrist: Code(s): M19.131 - Post-traumatic osteoarthritis, right wrist Plan Assessment & Plan: 1. 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 Injection #1 : The risks and benefits of a steroid injection including but not limited to risk of damage to blood vessels, nerve, tendon, infection, skin bleaching, persistent or worsening pain, and failure to improve symptoms were discussed with the patient and they wish to proceed with the steroid injection. Once consent was obtained the skin over the dorsal aspect of the right wrist was sterilely prepped. The radiocarpal joint at the scapholunate interval was then injected with a combination of 1 mL of (40 mg/ml} Depo-Medrol and 3% plain Lidocaine using the mini c-arm for needle guidance. The patient appears to have tolerated the procedure well and with no complications. Lei had good early relief before leaving clinic today. He knows that they may not have another steroid injection into this joint for least 4 months. I did talked to him about a proximal row carpectomy, and he understands that if the injections ever do not work for him that there is certainly an option for surgery. However, he may just do well with injections and never need surgery. Follow up prn 2. Right Carpal tunnel syndrome, S/P release DOS: 10/15/22 Pre-operative symptoms intermittent, but daily, worse at night Now with normal sensation He is happy with the results of his surgery Scribed for Smitha Abad MD by Phu Cristobal, medical staffing coordinator, on 12/10/23 at 1:20 PM, EST. Orders: Orders FL guided needle placement Today M19.131 - Post-traumatic osteoarthritis, right wrist Coding Level of Care Code Est Pt Level 3 (00128) Diagnoses Carpal tunnel syndrome of right wrist G56.01 Scapholunate advanced collapse of right wrist M19.131 CPT Codes Fracture Care - Fracture Billing Code: Fracture Billing Code ([id number])
== END 2023-12-10 13:39 | disposition home or self-care (01) ==
PROVIDERS: PCP Internal Medicine; Visit Provider Orthopaedic Surgery
DX: G56.01 Carpal tunnel syndrome, right upper limb (principal); M19.131 Post-traumatic osteoarthritis, right wrist
CPT/HCPCS: 20605; 77002; 99214

== ENCOUNTER 2024-06-09 09:55 | Outpatient (AMB) | payer OTHER, SELFPAY ==
[2024-06-09 10:28] VITALS: BMI 25.7
--- NOTE | 2024-06-09 10:28 | A.OFFVIS_ITS ---
Vital Signs 06/09/24 10:28 Height 5 ft 7 in Weight 164 lb BMI 25.7 Intake Visit Reasons: OV - right wrist injection, Last inj 12/10/23 Intake Note: Lei 63 yr old male presents today for a follow up evaluation of the right scapholunate advanced collapse wrist (SLAC) deformity s/p injection from 06/25/23. States previous injection lasted about 3-4 months and would like to repeat injection today. Allergies No Known Allergies Allergy (Verified 06/09/24 10:29) HPI HPI OV - right wrist injection, Last inj 12/10/23: Details: Lei is a 63 year old right hand dominant man who presents for a follow up of his right SLAC wrist. He received a wrist injection on 12/10/23, which he says lasted for ~3-4 months before his pain returned. He complains of increased pain in his wrist, worse with gripping, twisting, or pushing off activities, but he has pain with general use of his wrist. He says opening jars are particularly difficult for him, along with other heavy activities. He says driving is particularly painful & difficult for him. He would like a repeat injection today. He follows with Dr. William for Parkinson's disease. He is retired but tries to remain active. [facility] Medical History Hx of nephrolithotomy with removal of calculi Acid reflux Parkinson disease Surgical History H/O lithotripsy Social History Patient Tobacco Use Status: Never used Tobacco Second Hand Smoke Exposure: No Current occupational status: retired Current occupation: left hand Physical Exam Vital Signs: BMI result Body Mass Index 25.7 Const General: no acute distress and alert Orientation/consciousness: patient oriented x3 Neuro General: patient oriented x3 Extrem Other: Evaluation of Right Upper Extremity: The patient is alert, oriented, and in no acute distress Neuro: Median, Ulnar, Radial nerves motor and sensory intact and sensation is normal to the tips of all digits Vascular: Cap refill brisk ROM: He can make a fist and extend all his digits Focal area of swelling and tenderness over the radiocarpal joint Tenderness over the radiocarpal joint Psych Appearance: grossly normal Affect: normal affect Attitude: cooperative Office Procedures Fracture Care Details: No fracture, injection , and [address] FluoroScan for needle guidance Fracture Billing Code: Fracture Billing Code Assessment & Plan Assessment & Plan (1) Carpal tunnel syndrome of right wrist: Code(s): G56.01 - Carpal tunnel syndrome, right upper limb Category: Medical (2) Scapholunate advanced collapse of right wrist: Code(s): M19.131 - Post-traumatic osteoarthritis, right wrist Category: Medical Plan Assessment & Plan: 1. 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 However, he may just do well with injections and never need surgery. I discussed activity modification, he is to limit or avoid any heavy or repetitive activities which worsen his pain I discussed the use of assistive devices to modify his activities, especially twisting jars open He was fitted for a new velcro wrist brace today. He should continue to wear his wrist brace with daily activities, and remove it at rest. Injection #1 : The risks and benefits of a steroid injection including but not limited to risk of damage to blood vessels, nerve, tendon, infection, skin bleaching, persistent or worsening pain, and failure to improve symptoms were discussed with the patient and they wish to proceed with the steroid injection. Once consent was obtained the skin over the dorsal aspect of the right wrist was sterilely prepped. The radiocarpal joint at the scapholunate interval was then injected with a combination of 1 mL of (40 mg/ml} Depo-Medrol and 3% plain Lidocaine using the mini c-arm for needle guidance. The patient appears to have tolerated the procedure well and with no complications. Lei had good early relief before leaving clinic today. He knows that they may not have another steroid injection into this joint for least 4 months. Follow up prn 2. Right Carpal tunnel syndrome, S/P release DOS: 10/15/22 Pre-operative symptoms intermittent, but daily, worse at night Now with normal sensation He is happy with the results of his surgery Scribed for Smitha Abad MD by Phu Cristobal, medical imaging technician, on 06/09/24 at 10:55 AM, EST. Orders: Orders FL guided needle placement Today M19.131 - Post-traumatic osteoarthritis, right wrist Coding Level of Care Code Est Pt Level 3 (35457) Diagnoses Carpal tunnel syndrome of right wrist G56.01 Scapholunate advanced collapse of right wrist M19.131 CPT Codes Fracture Care - Fracture Billing Code: Fracture Billing Code ([id number])
== END 2024-06-09 11:29 | disposition home or self-care (01) ==
PROVIDERS: PCP Internal Medicine; Visit Provider Orthopaedic Surgery
DX: G56.01 Carpal tunnel syndrome, right upper limb (principal); M19.131 Post-traumatic osteoarthritis, right wrist
CPT/HCPCS: 20605; 77002; 99213

== ENCOUNTER 2024-06-09 09:55 | Outpatient (REF) | payer OTHER, SELFPAY | END 2024-06-09 09:56 | disposition home or self-care (01) | LOC: HO.HOSX 09:55 | PROVIDERS: PCP Internal Medicine; Visit Provider Orthopaedic Surgery | DX: M19.131 Post-traumatic osteoarthritis, right wrist (principal); G56.01 Carpal tunnel syndrome, right upper limb | CPT/HCPCS: 20605; 77002; J0665; J1010 ==

== ENCOUNTER 2024-07-29 11:43 | Outpatient (AMB) | payer OTHER, SELFPAY ==
--- NOTE | 2024-07-29 11:45 | AM.OFFWIN_ITS ---
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 Patient Tobacco Use Status: Never used Tobacco Allergies No Known Allergies Allergy (Verified 07/29/24 11:48) Do you need a note to return to daycare/school/sports/work: No HPI [employer] foot injury HPI Details This note is constructed using voice recognition software. While every effort has been made to ensure accuracy, radiography technician errors may have been included. The patient is a 64 year old male who presents to the clinic today with right foot pain after stubbing his toe approximately 2 weeks ago. He is intermittently using ibuprofen and ice as well as rest and minimizing his ambulation to help with the pain. He does report that he is not consistent about these items in the pain continues to be there. Pain is worse in the mo rning, but also exacerbated by stepping on it. [facility] Medical History Hx of nephrolithotomy with removal of calculi Acid reflux Parkinson disease Surgical History (Reviewed 12/10/23 @ 12:51 by Yina Coleman [facility]) H/O lithotripsy Social History Patient Tobacco Use Status: Never used Tobacco Second Hand Smoke Exposure: No Current occupational status: retired Current occupation: left hand Review of Systems Const All systems reviewed & are unremarkable except as noted in HPI and below Physical Exam Vital Signs: Last Vital Signs Pulse 75 07/29/24 11:47 BP 142/80 H 07/29/24 11:47 Pulse Ox 97 07/29/24 11:47 Oxygen Delivery Method Room Air 07/29/24 11:47 BMI result Body Mass Index 25.2 Const General: cooperative, healthy appearing, comfortable, no acute distress and alert Orientation/consciousness: patient oriented x3 Limitations: no limitations Resp Effort & Inspection: normal respiratory effort and able to speak in complete sentences Skin General skin exam: no rashes or lesions noted, elasticity normal and turgor normal Neuro General: patient oriented x3 Extrem Other: Tender to palpation along right 5th metatarsal no obvious deformity, slight edema. Full range of motion, strength 5/5. General: Yes full ROM, Yes capillary refill normal and Yes normal exam except as noted Psych Appearance: grossly normal Mental Status: mental status grossly normal Speech and movement: Normal speech and movement present Affect: normal affect Results Reviewed Results Reviewed: XR images contemporaneously read by me when images available, after patient had left, with findings reflecting fracture in 5th phalynx. Assessment & Plan Assessment & Plan (1) Right foot pain: Code(s): M79.671 - Pain in right foot Plan: Advised use of lui tape, and supportive footwear. Offered immobilizer boot, declined at this time. X-ray ordered to evaluate for possible fracture. If he has a displaced fracture, he would like to be referred to Smitha Abad who works with Dr. Nicolas's office. Advised ongoing use of NSAIDs, rest, ice, elevation. Plan See above for full details and plan. Orders: Orders XR foot RT 2V Today M79.671 - Pain in right foot Referrals Orthopedics Referral M79.671 - Pain in right foot, S92.901A - Unspecified fracture of right foot, initial encounter for closed fracture Coding Level of Care Code Est Pt Level 4 (83358) Diagnoses Right foot pain M79.671
[2024-07-29 11:47] VITALS: BP 142/80; PULSE 75; O2SAT 97; BMI 25.2
== END 2024-07-29 13:42 | disposition home or self-care (01) ==
PROVIDERS: PCP Internal Medicine; Visit Provider Registered Nurse
DX: M79.671 Pain in right foot (principal)

== ENCOUNTER → 2024-07-29 11:43 | Outpatient (BNVA) | payer OTHER, SELFPAY | PROVIDERS: PCP Internal Medicine ==

== ENCOUNTER 2024-07-29 12:02 | Outpatient (REF) | payer OTHER, SELFPAY ==
--- NOTE | ~2024-07-29 | XR_ITS ---
EXAMINATION: XR FOOT, RIGHT CLINICAL INFORMATION: 5th metatarsal pain from trauma COMPARISON: None available. TECHNIQUE: AP, lateral, and oblique views of the right foot. FINDINGS: There is a transverse fracture involving the 5th proximal phalanx which is minimally angulated/displaced. Cannot exclude extension into the 5th MTP joint. No additional fractures. Mild 1st MTP joint osteoarthritis. XR/XR foot RT 2V IMPRESSION: Transverse fracture of the 5th proximal phalanx. Electronically signed by: Viral Lacey MD 07/29/2024 12:58 PM EDT
== END 2024-07-29 12:03 | disposition home or self-care (01) ==
LOC: HO.HMGCX 12:02
PROVIDERS: Visit Provider Registered Nurse
DX: M79.671 Pain in right foot (principal)
CPT/HCPCS: 73620

== ENCOUNTER 2024-10-05 11:35 | Outpatient (REF) | payer OTHER, SELFPAY ==
[2024-10-05 11:58] LABS: MANUAL DIFF FLAG NO
[2024-10-05 12:38] LABS: Basophils Absolute Auto 0.1 X10*3/uL (0.0-0.2); Basophils Percent Auto 0.8 % (0-2); Eosinophils Absolute Auto 0.2 X10*3/uL (0.0-0.4); Eosinophils Percent Auto 2.7 % (0-4); Hematocrit 43.3 % (42.0-52.0); Hemoglobin 14.4 g/dl (14.0-18.0); Imm Gran Abs Auto 0.02 X10*3/uL (0.00-0.03); Imm Gran Pct Auto 0.3 % (0.0-0.4); Lymphocytes Absolute Auto 1.9 X10*3/uL (1.2-4.9); Lymphocytes Percent Auto 25.2 % (20-40); Mean Corpuscular HGB Conc 33.3 g/dl (31.0-36.0); Mean Corpuscular Hemoglobin 29.4 pg (27.0-33.0); Mean Corpuscular Volume 88.5 fL (80.0-98.0); Mean Platelet Volume 13.3 fL (9.4-12.4); Monocytes Absolute Auto 0.6 X10*3/uL (0.1-1.2); Monocytes Percent Auto 8.3 % (2-11); Neutrophils Absolute Auto 4.7 x10*3/uL (2.0-8.3); Neutrophils Percent Auto 62.7 % (45-73); Platelet Count 141 X10*3/uL (160-400); Red Blood Count 4.89 X10*6/uL (4.60-5.80); Red Cell Distribution Width 14.2 % (11.0-16.0); White Blood Count 7.5 X10*3/uL (4.8-10.8)
[2024-10-05 13:18] LABS: Alanine Aminotransferase 8 U/L (0-40); Anion Gap 8 (12-20); Aspartate Amino Transferase 27 U/L (5-37); Blood Urea Nitrogen 17 mg/dL (9-16); Calcium 8.8 mg/dL (8.4-10.2); Carbon Dioxide 29 mmol/L (22-29); Chloride 106 mmol/L (96-108); Estimated Glomerular Filt Rate > 60; Glucose Random 103 mg/dL (60-115); Magnesium 2.1 mg/dL (1.6-2.6); Potassium 3.9 mmol/L (3.3-5.1); Sodium 139 mmol/L (135-145)
[2024-10-05 13:36] LABS: Thyroid Stimulating Hormone 0.67 uIU/mL (0.32-4.0)
[2024-10-05 13:40] LABS: Vitamin B12 500 pg/mL (200-900)
[2024-10-09 17:34] LABS: Methylmalonic Acid 203 nmol/L (69-390)
== END 2024-10-05 11:36 | disposition home or self-care (01) ==
LOC: HO.LAB 11:35
PROVIDERS: PCP Internal Medicine; Visit Provider Internal Medicine
DX: K21.9 Gastro-esophageal reflux disease without esophagitis (principal); R25.2 Cramp and spasm; Z80.42 Family history of malignant neoplasm of prostate; Z79.899 Other long term (current) drug therapy
CPT/HCPCS: 36415; 80048; 82550; 82607; 83735; 83921; 84443; 84450; 84460; 85025

== ENCOUNTER 2025-02-24 10:48 | Outpatient (REF) | payer OTHER, SELFPAY ==
--- NOTE | ~2025-02-24 | XR_ITS ---
EXAMINATION: XR CHEST 2 VIEWS HISTORY: COUGH COMPARISON: Comparison is made with the prior examination dated 07/31/2023. FINDINGS: PA and lateral views of the chest are submitted. The lungs are expanded and clear. There is no pleural effusion, pneumothorax, or pulmonary vascular congestion. The heart is normal in size. There is mild degenerative disc disease of the spine. XR/XR chest 2V IMPRESSION: No acute cardiopulmonary abnormality. Electronically signed by: Escobar Chan MD 02/25/2025 12:36 PM EDT
== END 2025-02-24 10:49 | disposition home or self-care (01) ==
LOC: HO.XRAY 10:48
PROVIDERS: PCP Internal Medicine; Visit Provider Internal Medicine
DX: R05.9 Cough, unspecified (principal)
CPT/HCPCS: 71046

== ENCOUNTER → 2025-02-24 10:54 | Outpatient (BNV) | payer OTHER, SELFPAY | PROVIDERS: PCP Internal Medicine; Visit Provider Radiology Diagnostic Radiology | DX: R05.9 Cough, unspecified (principal) | CPT/HCPCS: 71046 ==

== ENCOUNTER 2025-03-12 16:54 | Emergency (ER) | payer MEDICARE, SELFPAY ==
--- NOTE | ~2025-03-12 | XR_ITS ---
CLINICAL HISTORY: rolled L ankle 3 view left ankle Comparison: None Findings: No acute fractures or dislocations. No significant loss of joint space, osteophytes, or erosions. No ankle effusion. No radiopaque foreign body. IMPRESSION: 1. No acute findings. This document has been electronically signed by: Nae Castro MD on 03/12/2025 18:17:47
--- NOTE | ~2025-03-12 | XR_ITS ---
CLINICAL HISTORY: rolled ankle 3 view left foot Comparison: None Findings: Bones intact. No dislocations. No significant loss of joint space, osteophytes, or erosions. No ankle effusion. No radiopaque foreign body. IMPRESSION: 1. No acute findings. This document has been electronically signed by: Nae Castro MD on 03/12/2025 18:17:58
--- NOTE | 2025-03-12 17:36 | ED.LOWEXIN ---
HPI - Extremity Injury (Lower) General Chief Complaint: Extremity Injury, Lower Stated Complaint: left ankle injury Time Seen by Provider: 03/12/25 17:53 Source: patient Mode of arrival: ambulatory Limitations: no limitations History of Present Illness HPI Narrative: This is a 65-year-old man with a past medical history of Parkinson's disease, history of lower back pain who presents for evaluation of left ankle injury. Patient states that he was on the boat and rolled his left ankle. He states no associated falls/head strike or syncope. He states that he did not walk after the injury because he thought he might have broken it. He states no previous injury to his ankle or surgery. He states no loss of sensation or paresthesias. He states no other areas of pain. He states no chest pain or dyspnea. Related Data Home Medications ?Medication ?Instructions ?Recorded ?Confirmed carbidopa 25 mg-levodopa 100 mg 2 tab PO QID 09/11/22 10/15/22 tablet clonazepam 0.5 mg tablet 0.25 mg PO BEDTIME 09/11/22 10/15/22 omeprazole 20 mg capsule,delayed 20 mg PO DAILY 09/11/22 10/15/22 release pramipexole 1.5 mg tablet,extended 3 mg PO BID 09/11/22 10/15/22 release 24 hr sildenafil 100 mg tablet 100 mg PO DAILY 09/11/22 10/15/22 Previous Rx's ?Medication ?Instructions ?Recorded lidocaine 5 % topical patch 1 patch topical DAILY #15 ea 07/31/23 Allergies Allergy/AdvReac Type Severity Reaction Status Date / Time No Known Allergies Allergy Verified 03/12/25 17:38 Review of Systems Review of Systems: ROS as per HPI [facility] Past Medical History Medical History Hx of nephrolithotomy with removal of calculi Acid reflux Parkinson disease Surgical History H/O lithotripsy Social History Social History Patient Tobacco Use Status: Never used Tobacco Second Hand Smoke Exposure: No Current occupational status: retired Current occupation: left hand Physical Exam Vital Signs: Vital Signs: Last Vital Signs Temp 98 F 03/12/25 17:37 Pulse 93 03/12/25 17:37 Resp 16 03/12/25 17:37 BP 132/77 03/12/25 17:37 Pulse Ox 95 03/12/25 17:37 O2 Del Method Room Air 03/12/25 17:37 BMI result Body Mass Index 25.1 Gen: NAD, AOx3 HEENT: NCAT, EOMI, normal conjunctiva CV: RRR, 2+ left DP/PT pulses Pulm: CTAB, no increased work of breathing MSK: Bilateral lower extremity compartments are soft with intact overlying skin, tenderness to palpation to the left anterior talofibular ligament with mild ecchymosis/edema, no tenderness to palpation to the left posterior 1/3 lateral or medial malleoli, no tenderness to palpation to the left navicular bone or base of the 5th metatarsal, no tenderness palpation of the left tibia/fibula GI: Soft, NTND, no rebound, guarding or rigidity Neuro: GCS 15, sensation intact to light touch to bilateral lower extremities Course Course Course Narrative: This is a Rapid Medical Exam performed in triage by Jessica Moreira PA-C. Full HPI, ROS and PE to be performed by primary ED provider. 65-year-old male presenting to the ED c/o L ankle pain s/p rolling ankle [employer] s/p stepping off boat. denies head trauma or LOC. Unable to bear weight since incident PE: in wheelchair, L ankle/foot w/lateral swellinf & ttp, NV intact Plan: XR Medical Decision Making Medical Decision Making MDM Narrative: Differential diagnosis includes, but is not limited to strain, sprain, fracture. Patient is afebrile and hemodynamically stable on room air. Exam is benign and reassuring. The affected left lower extremity is neurovascularly intact. Patient is treated supportively with ibuprofen and Tylenol. I reviewed x-rays as below. Patient is provided boot and crutches. On re-examination, patient is well-appearing and in no acute distress. There is no indication for further emergent evaluation in this otherwise well-appearing patient as above. ?Patient is provided written and verbal instructions, educational materials, recommendations for outpatient follow-up, strict return precautions and teach back is performed. ?Patient states understanding and agreement with plan of care. ?Patient is discharged home in stable and improved condition. Independent Interpretation I performed an independent interpretation of an: Plain X-Ray Interpretation: X-ray of the left foot and ankle demonstrate no acute fracture Radiology Impression Discussion of test interpretation with radiology: I have reviewed the radiologist's reading. Radiologist Impression: Findings: No acute fractures or dislocations. No significant loss of joint space, osteophytes, or erosions. No ankle effusion. No radiopaque foreign body. IMPRESSION: 1. No acute findings. This document has been electronically signed by: Nae Castro MD on 03/12/2025 18:17:47 Dictated By: Nae Castro MD Signed By: <Electronically signed by Nae Castro MD in OV> 03/12/25 1818 Findings: Bones intact. No dislocations. No significant loss of joint space, osteophytes, or erosions. No ankle effusion. No radiopaque foreign body. IMPRESSION: 1. No acute findings. This document has been electronically signed by: Nae Castro MD on 03/12/2025 18:17:58 Dictated By: Nae Castro MD Signed By: <Electronically signed by Nae Castro MD in OV> 03/12/25 1819 Discharge Plan Discharge Clinical Impression: Left ankle sprain Patient Disposition: Home, Self-Care Instructions: Ankle Sprain (ED) Additional Instructions: You were evaluated in the emergency room for an ankle injury. The x-ray of your foot and ankle showed no broken or dislocated bones. You were given crutches and a boot to use for your injury. Please elevate your leg above the level of your heart to decrease swelling. You may remove your boot when resting and to ice. Please ice 20 minutes at a time with 20 minutes break in between. Repeat 3 times in a row. Feel free to repeat the entire cycle several times a day. Please be sure to protect your skin from the ice. Please take 600mg ibuprofen with food AND water every 6 hours for at least 2-3 days schedule and then as needed. Do not take more than 2400mg Ibuprofen in 24 hours. You may also take 500-1000mg Tylenol every 8 hours for additional pain relief. Do not take more than 3000mg Tylenol in 24 hours. Follow up with your primary care doctor in 1-2 weeks for reevaluation. Return to the emergency room with any new concerns, symptoms or injuries. Prescriptions: No Action lidocaine 5 % adhesive patch,medicated 1 patch topical DAILY Qty: 15 0RF Rx Instructions: leave on most painful area for up to 12 hrs pramipexole 1.5 mg tablet extended release 24 hr 3 mg PO BID carbidopa-levodopa 25-100 mg tablet 2 tab PO QID omeprazole 20 mg capsule,delayed release(DR/EC) 20 mg PO DAILY sildenafil 100 mg tablet 100 mg PO DAILY clonazepam 0.5 mg tablet 0.25 mg PO BEDTIME Rx Instructions: administer 30 minutes before bedtime Print Language: Guatemalan
[2025-03-12 17:37] VITALS: BP 132/77; PULSE 93; RESP 16; TEMP 36.6; O2SAT 95; BMI 25.1
[2025-03-12] MEDS: Acetaminophen 325 MG TABLET 650 MG PO (18:38)
[2025-03-12] MEDS: Ibuprofen 600 MG TABLET PO (18:38)
[2025-03-12 18:55] VITALS: BP 135/80; PULSE 90; RESP 16; TEMP 36.6; O2SAT 96
== END 2025-03-12 18:57 | disposition home or self-care (01) ==
PROVIDERS: Emergency Provider Emergency Medicine; PCP Internal Medicine
DX: S93.402A Sprain of unspecified ligament of left ankle, initial encounter (principal); X50.1XXA Overexertion from prolonged static or awkward postures, initial encounter; M25.572 Pain in left ankle and joints of left foot; Y93.19 Activity, other involving water and watercraft; Y92.89 Other specified places as the place of occurrence of the external cause; Y99.9 Unspecified external cause status
CPT/HCPCS: 73610; 73630; 99283; 99284

== ENCOUNTER → 2025-03-12 17:40 | Outpatient (BNV) | payer MEDICARE, SELFPAY | PROVIDERS: Emergency Provider Emergency Medicine; PCP Internal Medicine; Visit Provider Radiology Diagnostic Radiology | DX: S93.402A Sprain of unspecified ligament of left ankle, initial encounter (principal); W18.49XA Other slipping, tripping and stumbling without falling, initial encounter | CPT/HCPCS: 73610; 73630 ==

== ENCOUNTER 2025-09-01 08:55 | Outpatient (AMB) | payer MEDICARE, MEDICAID, SELFPAY ==
--- NOTE | 2025-09-01 08:59 | A.OFFVIS_ITS ---
Intake Visit Reasons: 1 year follow up Allergies No Known Allergies Allergy (Verified 09/01/25 09:00) Medication List - Last Reconciled 09/01/25 by Jessie Alvarez CNP carbidopa-levodopa 25-100 mg 2 tabs PO QID 90 days clonazepam (Klonopin) 1 mg PO DAILY PRN lidocaine 5% 1 patch topical DAILY omeprazole 20 mg PO DAILY omeprazole 40 mg PO DAILY pramipexole ER 3 mg PO BID sildenafil 100 mg PO DAILY HPI Comments Details: He was doing okay. Tremor to left hand was on and off. No functional impairment. No difficulty eating, drinking, or swallowing. He was still having some dyskinesias, which he noticed more often around the evening time. Balance was off at times, but no falls. He had some trouble getting up from chair and turning in bed due to arthritis pains in back, neck, and shoulders. He was having some numbness and tingling to left neck into shoulder for last few weeks with some soreness in neck. No new or increased weakness. No specific trigger. Had surgery to R wrist in 12/2024 for arthritis that was still bothering him. Sleep was okay, some nights better than others. Mood was okay. Anxiety was about the same and has clonazepam as needed. On rare occasions, he may take extra dose of carbidopa-levodopa depending on if tremor was interfering with what he was doing. Some dyskinetic movements when resting in the afternoon. Some trouble turning in bed due to arthritis pains in back and joints. Arthritic pains worse with cold weather, feels stiff in morning, but better as day goes on. He did not end up having sleep study done. Always has high level of anxiety. Uses clonazepam as needed with good effect. Sertraline did not help and made sleep worse, so he stopped it. Enjoys golfing, fishing, boating. Retired 02/2023. He developed tremors in his dominant left hand in 2008 and was seen by Dr[address] Rossy Garcia in [place] and diagnosed with Parkinson's disease. He has been maintained on carbidopa levodopa 25 100, 2tabs 4 times a day and pramipexole 1.5 mg 2 tablets morning and night started in 2014. He was also tried on Azilect, but had side effects and therefore it was discontinued. He has done fairly well and functions fairly normally doing autobody work, although not as much as before because of back pain. 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 Cognitively he has done well. Occasionally he has some trouble with names. He gets occasional dyskinesia if he takes an extra carbidopa. No hallucinations. Rare nightmares. He reports no other side effects from his medications. If he gets anxious and nervous, the tremor increases. [facility] Medical History (Updated 09/01/25 @ 09:13 by Jessie Alvarez CNP) Hx of nephrolithotomy with removal of calculi Acid reflux Parkinson disease Surgical History H/O lithotripsy Social History Patient Tobacco Use Status: Never used Tobacco Second Hand Smoke Exposure: No Current occupational status: retired Current occupation: left hand Review of Systems Const Denies chills, Denies daytime sleepiness, Reports difficulty sleeping, Denies fatigue, Denies fever(s), Denies frequent falls, Denies headache(s), Denies increased appetite, Denies poor appetite, Denies snoring, Denies weakness, Denies weight gain and Denies weight loss Eyes Denies loss of vision ENT Denies vertigo, Denies dizziness, Denies headache(s) and Denies neck pain Card Denies chest pain at rest, Denies chest pain with activity, Denies syncope, Denies leg edema, Denies palpitations, Denies dyspnea and Denies dyspnea on exertion Resp Denies cough, Denies dyspnea, Denies dyspnea on exertion and Denies snoring GI Denies abdominal pain, Denies constipation, Denies heartburn, Denies diarrhea and Denies nausea Denies urinary frequency, Denies urinary incontinence and Denies urinary urgency Musc Denies abnormal gait, Reports back pain, Denies myalgias, Denies arthralgias, Denies neck pain, Denies numbness and Denies tingling Neuro Denies abnormal gait, Denies vertigo, Denies dizziness, Denies syncope, Denies frequent falls, Denies headache(s), Denies lack of coordination, Denies loss of vision, Denies memory loss, Denies numbness, Denies Other visual disturbances, Denies restless legs, Denies seizure-like activity, Denies tingling, Denies paresthesias, Reports tremor(s) and Denies weakness Psych Reports anxiety, Reports depression, Denies auditory hallucinations, Denies memory loss and Denies visual hallucinations Endo Denies fatigue and Denies palpitations Physical Exam Const Other: General Appearance:? normal, in no acute distress. Heart:? S1, S2 normal, no murmurs. Lungs:? clear anteriorly and posteriorly. Musculoskeletal:? normal. Extremities:? no edema. Psych:? alert, oriented, cognitive function intact, cooperative with exam. Neuro Other: Abnormal Neurological Findings:?Intermittent LUE tremor at rest. Very mild cogwheeling rigidity. Somewhat reduced facial expressions and reduced blinking frequency. Dyskinetic movements. Mental Status: alert and oriented X 3. Normal attention, orientation, memory, and affect. Cranial Nerves: Pupils are equal, round, and reactive to light. External ocular muscles are intact. Visual brown are full, no ptosis. Face is symmetrical, no facial weakness or droop. Facial sensations are normal. Tongue protrudes in midline. Palate elevates symmetrically. Shoulder shrugging is normal Motor Examination: Normal muscle tone, bulk and strength. No atrophy or fasciculations. No drift of the extended upper extremities. DTR 2+. Plantars are flexor. Sensory Exam: Normal light touch, temperature, pinprick, vibration, and joint- position sensations. Rhomberg sign is absent. Coordination: No ataxia. No titubation. Gait Exam: Within normal limits. Cerebellar Signs: [id number] is okay. Extrapyramidal System: As above. Speech: Normal. Results Reviewed Results Reviewed: 09/07/2020 NCV: Mild R CTS Assessment & Plan Assessment & Plan (1) Parkinson disease: Code(s): G20 - Parkinson's disease Category: Medical Plan: Continue carbidopa-levodopa 25-100mg 2 tablets four times a day. * Side effects of carbidopa-levodopa reviewed, including dyskinesia - may try to reduce dose of medication to see if symptoms improve, however may have more tremor with lower dose. Continue pramipexole ER 1.5mg 2 tablets twice a day. (2) Anxiety: Code(s): F41.9 - Anxiety disorder, unspecified Category: Medical Plan: Continue clonazepam 1mg 1 tablet as needed once a day for anxiety #30 for 30 days. (3) Neck pain: Code(s): M54.2 - Cervicalgia Category: Medical Plan: C-spine XR ordered. Plan Meds tried: Selegiline (jittery), sertraline (did not help and made sleep worse) Medications: Changed From pramipexole ER 3 mg PO BID To pramipexole ER 3 mg (2 x 1.5 mg) PO BID 360 tabs 1RF 90 days Coding Level of Care Code Est Pt Level 4 (79704) Diagnoses Parkinson disease G20 Anxiety F41.9 Neck pain M54.2
--- OUTSIDE RECORDS SUMMARY | 2025-09-01 09:27 | XMS_ITS | Clinical Summary ---
Author Organization [address] Address [address] [place] [phone] Phone Care Team Providers Care Supplier Engineer Name Role Phone Yong Cunningham MD Primary Care Provider [phone] Allergies No known active allergies Medications carbidopa-levod opa (SINEMET) 25-100 mg per immediate release tablet Take 2 tablets by mouth every 4 (four) hours. For a total of 8-10 tablets. 06/10/2020 Active clonazePAM (KLONOPIN) 1 mg tablet Take 1 mg by mouth daily as needed. 03/07/2020 Active omeprazole (PRILOSEC) 20 mg capsule Take 20 mg by mouth daily. 05/11/2020 Active pramipexole 1.5 mg Tb24 TAKE TWO TABLETS BY MOUTH TWICE A DAY 06/21/2020 Active sildenafiL (VIAGRA) 100 mg tablet TAKE ONE TABLET BY MOUTH ONE HOUR BEFORE SEXUAL ACTIVITY 06/28/2020 Active Active Problems Problem Noted Date Diagnosed Date Pneumonia 07/05/2020 Parkinson disease (HC Code) 07/05/2020 Social History Tobacco Use Types Packs/Day Years Used Date Smoking Tobacco: Never Smokeless Tobacco: Never Alcohol Use Standard Drinks/Week Comments Yes 0 (1 standard drink = 0.6 oz pur e alcohol) AUDIT-C Answer Date Recorded Q1: How often do you have a drink containing alc ohol? 2-3 times a week 07/05/2020 Average Number of Drinks Not on file 020 Frequency of Binge Drinking Not on file 05/2020 Sex and Gender Information Value Date Recorded Sex Assigned at Not on file Legal Sex Male 9:42 AM EDT Gender Identity Not on file Sexual Orientation Not on file Last Filed Vital Signs Vital Sign Reading Time Taken Comments Blood Pressure 123/81 07/07/2020 1:49 PM EDT Pulse 83 07/07/2020 1:49 PM EDT Temperature 37 C (98.6 F) 07/07/2020 1:49 PM EDT Respiratory Rate 20 07/07/2020 1:49 PM EDT Oxygen Saturation 94% 07/07/2020 1:49 PM EDT Inhaled Oxygen Concentration - - Weight 72.5 kg (159 lb 13.3 oz) 07/05/2020 2:00 PM EDT Height 170.2 cm (5' 7 ) 07/05/2020 2:00 PM EDT Body Mass Index 25.03 07/05/2020 2:00 PM EDT Plan of Treatment Health Maintenance Due Date Last Done Comments HIV screening 1973 Hepatitis C screening 1978 Tetanus adult (Td q 10,TDAP once) 1980 Lipid disorder screening 2000 Colon cancer screening, Colonoscopy 2005 Pneumococcal Vaccine (50+ years) (1 of 1 - PCV) 2010 Shingles vaccine (Shingrix) (1 of 2 - Shingrix (RZV) 2 Dose Standard Series) 2010 Diabetes screening 07/07/2023 07/07/2020, 07/06/2020, 07/05/2020 Influenza vaccine 05/28/2025 Covid-19 vaccine series (1 - 2024-26 season) 2025 RSV Immunization (1 - 1-dose 75+ series) 2035 Meningococcal B Vaccine Aged Out No l onger eligible based on patient's age to complete this topic Meningococcal Vaccine Aged Out No hellen jairo eligible based on patient's age to complete this topic Procedures Procedure Name Priority Date/Time Associated Diagnosis Comments COMPREHENSIVE METABOLIC PANEL Routine 07/07/2020 5:15 AM EDT from Last 3 Months or Most Recently Relevant to Health Maintenance Results * (ABNORMAL) Comprehensive metabolic panel (07/07/2020 5:15 AM EDT) Sodium 132(L) 136 - 145 mmol/L 07/07/2020 7:16 AM [facility] Potassium 3.7 3.5 - 5.1 mmol/L 07/07/2020 7:16 AM [facility] Chloride 99 98 - 107 mmol/L 07/07/2020 7:16 AM [facility] CO2 27 21 - 32 mmol/L 07/07/2020 7:16 AM [facility] Anion Gap 6 5 - 15 mmol/L 07/07/2020 7:16 AM [facility] Glucose 97 65 - 110 mg/dL 07/07/2020 7:16 AM [facility] Comment: Non-fastin-110 mg/dL Fasting (minimum 6 hrs): 65-99 mg/dL BUN 14 7 - 18 mg/dL 07/07/2020 7:16 AM [facility] Creatinine 0.96 0.70 - 1.30 mg/dL 07/07/2020 7:16 AM [facility] eGFR (-SPANISH) >60 >60 mL/min/1. 73m2 07/07/2020 7:16 AM [facility] eGFR (NON -[place]) >60 >60 mL/min/1. 73m2 07/07/2020 7:16 AM [facility] Comment: (NOTE) These are estimated GFR values resulting from utilization of a calculation incorporating the best data available for input, but all assumptions may not be correct in every case. In addition, there are several situations (elderly over 70 years, , serious co morbidities, extremes of body size or nutritional status) which could contribute to a misleading result. Therefore, clinical correlation is advised to prevent arriving at an erroneous conclusion based solely on the calculation utilized. Calcium 8.6 8.5 - 10.1 mg/dL 07/07/2020 7:16 AM [facility] Total Protein 6.8 6.4 - 8.2 g/dL 07/07/2020 7:16 AM [facility] Albumin 2.8(L) 3.4 - 5.0 g/dL 07/07/2020 7:16 AM [facility] Globulin 4.0 2.5 - 5.0 g/dL 07/07/2020 7:16 AM [facility] Total Bilirubin 0.6 0.2 - 1.0 mg/dL 07/07/2020 7:16 AM [facility] Comment:Use of this assay is not recommended for patients undergoing treatment with Eltrombopag due to the potential for falsely elevated results. Alkaline Phosphatase 82 45 - 117 U/L 07/07/2020 7:16 AM [facility] Alanine Aminotransferase (ALT) 8(L) 12 - 78 U/L 07/07/2020 7:16 AM [facility] Aspartate Aminotransferase (AST) 12(L) 15 - 37 U/L 07/07/2020 7:16 AM [facility] Blood Venipuncture / Unknown 07/07/2020 5:15 AM EDT 07/07/2020 6:12 AM EDT Dipak Goldstein MD LAB BLOOD ORDERABLES F inal Result Performing Organization Address City/State/[facility] [place] [address], [facility] [phone] from Last 3 Months or Most Recently Relevant to Health Maintenance Insurance [facility] Member Subscriber Plan / Payer (Ef fective 2019-Present) Name:Lei Art Relation to Subscriber:Spouse Name:IGOR ART Date of :1961 (Home) (Work) Address: [address] [place] [id number] Payer ID:[id number] (NAIC) Type:Not on file Address: [place] [id number] [employer] Member Subscriber Plan / Payer (Ef fective 2019-Present) Name:Lei Art Relation to Subscriber:Spouse Name:IGOR ART Date of :1961 (Home) (Work) Address: [address] [place] [id number] Payer ID:[id number] (NAIC) Type:Not on file Address: [place] [id number] Advance Directives * Full ACLS (Latest Code Status on File) Date Activated Date Inactivated Comments 07/05/2020 5:47 PM 07/07/2020 7:51 PM Care Teams Supplier Engineer Relationship Specialty Start Date End Date Yong Cunningham MD [address] [place] [phone] PCP - General Internal Medicine 07/05/20
== END 2025-09-01 09:18 | disposition home or self-care (01) ==
PROVIDERS: PCP Internal Medicine; Visit Provider Registered Nurse
DX: G20.C Parkinsonism, unspecified (principal); F41.9 Anxiety disorder, unspecified; M54.2 Cervicalgia
CPT/HCPCS: 99214

== ENCOUNTER 2025-09-01 08:55 | Outpatient (REF) | payer MEDICARE, MEDICAID, SELFPAY ==
--- NOTE | ~2025-09-01 | XR_ITS ---
EXAMINATION: XR CERVICAL SPINE CLINICAL INFORMATION: M54.2 - Cervicalgia COMPARISON: None available. TECHNIQUE: 5 views of the cervical spine obtained, including bilateral oblique views. FINDINGS: There is no significant scoliosis. Mild straightening of the normal lordosis, nonspecific. Alignment is grossly anatomic without significant subluxation identified. No fracture, compression deformity, or suspicious bone lesion. The craniocervical junction, and C1-2 articulation are intact and normally aligned. Moderate to severe disc degeneration is present at C3-4, C4-5, and C5-6. There is milder change at C6-7. There is preservation of the C2-3 intervertebral disc. There is normal facet alignment. There are mild to moderate multilevel degenerative hypertrophic facet changes, left greater than right. Bilateral uncinate spurring is present at C3-4, C4-5, and C5-6. Oblique views demonstrate moderate left bony neural foraminal narrowing at C3-4, C4-5, C5-6, and C6-7. There is mild narrowing of the right bony neural foramina at C3-4, C4-5, and C6-7. There is no prevertebral soft tissue abnormality. Imaged lung apices are clear. XR/XR cervical spine 5V IMPRESSION: 1. No acute bony or soft tissue abnormality of the cervical spine. 2. Moderate degenerative spondylosis, most significant spanning C3-4 through C5-6. Electronically signed by: Bi Manzano MD 09/01/2025 09:51 AM EST
== END 2025-09-01 08:56 | disposition home or self-care (01) ==
LOC: HO.XRAY 08:55
PROVIDERS: Visit Provider Registered Nurse
DX: G20.B1 Parkinson's disease with dyskinesia, without mention of fluctuations (principal); F41.9 Anxiety disorder, unspecified; M54.2 Cervicalgia; Z79.899 Other long term (current) drug therapy
CPT/HCPCS: 72050; 99212

== ENCOUNTER → 2025-09-01 09:26 | Outpatient (BNV) | payer MEDICARE, MEDICAID, SELFPAY | PROVIDERS: Visit Provider Radiology Diagnostic Radiology | DX: M47.812 Spondylosis without myelopathy or radiculopathy, cervical region (principal) | CPT/HCPCS: 72050 ==